=== PATIENT | female | born 1950 | race Caucasian/White ===

== ENCOUNTER 2017-12-01 07:49 | Day surgery (SDC) | payer MEDICARE ==
[2017-11-29 12:08] VITALS: BMI 24.3
[~2017-12-01 07:49] MED LIST: LACTATED RINGERS 1,000 ML IV SCH; LIDOCAINE 1% 20 ML VIAL (10MG/ML) FOR IV START INTRADERMA PRN
[2017-12-01] MEDS ORDERED: PROPOFOL 10 MG/ML 20 ML VIAL IV ONE (08:39)
--- NOTE | 2017-12-01 09:07 | P.PCN ---
Date of Procedure: 12/01/17 Procedure(s) Performed: BRIEF HISTORY: Patient is a 67-year-old pleasant female, scheduled for an elective colonoscopy as a part of evaluation of prior history of colon polyps. Last coloscopy was 3 years ago. PROCEDURE PERFORMED: Colonoscopy with snare polypectomy. PREOPERATIVE DIAGNOSIS: History of colon polyps. IV sedation per Anesthesia. PROCEDURE: After informed consent was obtained, the patient, was brought into the endoscopy unit. IV sedation was administered by Anesthesia under continuous monitoring. Digital rectal examination was normal. Initially the Olympus CF- 160 flexible video colonoscope was then inserted in the rectum, gradually advanced into the cecum without any difficulty. Careful examination was performed as the scope was gradually being withdrawn. Ileocecal valve and the appendiceal orifice were visualized and appeared normal. Prep was excellent. Mucosa of the cecum, ascending colon, transverse colon, descending colon, sigmoid colon, and rectum appeared normal. In the proximal rectum there were 2 polyps measuring 5 mm in size both of which were removed by snare polypectomy. Retroflexion was performed in the rectum and no lesions were seen. The patient tolerated the procedure well. IMPRESSION: 5 mm proximal rectal polyps x 2, status post snare polypectomy Rest of the colon appeared normal RECOMMENDATIONS: Findings of this examination were discussed with the patient as well as her family. She was advised to follow with the biopsy results and have a repeat colonoscopy in 3 years.
[2017-12-01 09:37] VITALS: BP 127/78; PULSE 58; RESP 18
== END 2017-12-01 09:55 | disposition home or self-care (01) ==
LOC: ORWHC2ENDO 07:49
PROVIDERS: ATTEND Internal Medicine Gastroenterology
DX: Z12.11 Encounter for screening for malignant neoplasm of colon (principal); D12.8 Benign neoplasm of rectum; Z86.010 Personal history of colon polyps; Z79.890 Hormone replacement therapy; Z79.899 Other long term (current) drug therapy; I10 Essential (primary) hypertension; E78.5 Hyperlipidemia, unspecified; E07.9 Disorder of thyroid, unspecified; F39 Unspecified mood [affective] disorder
CPT/HCPCS: 88305; 45385; J2704

== ENCOUNTER → 2020-03-26 | Outpatient (CLI) | payer MEDICARE | END | disposition home or self-care (01) | LOC: LABWHC1 12:44 | PROVIDERS: ATTEND Family Medicine | DX: Z20.828 Contact with and (suspected) exposure to other viral communicable diseases (principal) | CPT/HCPCS: U0003; C9803 ==

== ENCOUNTER → 2020-04-02 | Outpatient (CLI) | payer MEDICARE | END | disposition home or self-care (01) | LOC: LABWHC1 12:45 | PROVIDERS: ATTEND Family Medicine | DX: Z20.828 Contact with and (suspected) exposure to other viral communicable diseases (principal) | CPT/HCPCS: U0003; C9803 ==

== ENCOUNTER 2023-03-22 06:26 | Day surgery (SDC) | payer MEDICARE ==
[2023-03-17 13:05] VITALS: BMI 26.6
[~2023-03-22 06:26] MED LIST changes: +LIDOCAINE 1% (10MG/ML) FOR IV START INTRADERMA PRN; -LIDOCAINE 1% 20 ML VIAL (10MG/ML) FOR IV START INTRADERMA PRN
[2023-03-22 07:06] VITALS: RESP 16; TEMP 97.4
[2023-03-22] MEDS ORDERED: PROPOFOL 10 MG/ML 20 ML VIAL IV ONE (07:41)
[2023-03-22] MEDS ORDERED: LIDOCAINE 2% INJ 20 MG/ML (2 ML VIAL) ONE (07:41)
--- NOTE | 2023-03-22 08:01 | P.PCN ---
Date of Procedure: 03/22/23 Procedure(s) Performed: BRIEF HISTORY: Patient is a 72-year-old pleasant white female scheduled for an elective colonoscopy as a part of evaluation of prior history of colon polyps. Last colonoscopy was 5 years ago. Procedure performed: Colonoscopy with snare polypectomy PREOPERATIVE DIAGNOSIS: History of colon polyps. IV sedation per Anesthesia. PROCEDURE: After informed consent was obtained, the patient, was brought into the endoscopy unit. IV sedation was administered by Anesthesia under continuous monitoring. Digital rectal examination was normal. Initially the Olympus CF-160 flexible video colonoscope was then inserted in the rectum, gradually advanced into the cecum without any difficulty. Careful examination was performed as the scope was gradually being withdrawn. Ileocecal valve and the appendiceal orifice were visualized and appeared normal. Prep was excellent. Mucosa of the cecum appeared normal. In the ascending colon there was a 1 cm polyp removed by snare polypectomy. Rest of the , ascending colon, transverse colon, descending colon, sigmoid colon, and rectum appeared normal. Retroflexion was performed in the rectum and no lesions were seen. scattered sigmoid diverticulosis. The patient tolerated the procedure well. IMPRESSION: 1 cm ascending colon polyp status post polypectomy scattered sigmoid diverticulosis RECOMMENDATIONS: Findings of this examination were discussed with the patient as well as her family. She was advised to follow with the biopsy results and if the disease an adenoma she can have a repeat screening colonoscopy in 10 years.
[2023-03-22 08:22] VITALS: BP 164/80; PULSE 62
== END 2023-03-22 08:49 | disposition home or self-care (01) ==
LOC: ORWHC2ENDO 06:26
PROVIDERS: ATTEND Internal Medicine Gastroenterology
DX: Z12.11 Encounter for screening for malignant neoplasm of colon (principal); D12.2 Benign neoplasm of ascending colon; K57.30 Diverticulosis of large intestine without perforation or abscess without bleeding; E78.5 Hyperlipidemia, unspecified; E03.9 Hypothyroidism, unspecified; F32.A Depression, unspecified; Z79.899 Other long term (current) drug therapy; Z79.890 Hormone replacement therapy
CPT/HCPCS: 88305; 45385; J2704; J2001

== ENCOUNTER → 2024-12-30 | Outpatient (CLI) | payer MEDICARE ==
--- NOTE | 2024-12-30 16:56 | NM ---
EXAMINATION TYPE: NM parathyroid w/ SPECT DATE OF EXAM: 12/30/2024 COMPARISON: NONE CLINICAL INDICATION: Female, 74 years old with history of E21.3 Hyperparathyroidism; TECHNIQUE: Following administration of 24.3 mCi Tc99m Sestamibi. Anterior projection images of the neck and ches t were obtained 10 minutes and 3 hours post injection. SPECT images of the neck and chest were obtai ron and reconstructed in three axes. FINDINGS: Normal uptake: There is physiological tracer uptake in the thyroid gland and salivary glands. However , the left thyroid lobe appears small with only the lower pole evident. Thyroid tracer washout: Delayed images demonstrate near-complete tracer washout from the right thyroi d lobe. Parathyroid uptake: However, the small left thyroid lobe shows persistent uptake. IMPRESSION: 1. Scintigraphic findings suggest a small left thyroid lobe. Consider confirming thyroid morphology w ith ultrasound. 2. In addition, persistent uptake on the left suggestive of a parathyroid adenoma. [facility], Workstation: [id number], 12/30/2024 4:53 PM
== END | disposition home or self-care (01) ==
LOC: RADNMMAIN 10:35
PROVIDERS: ATTEND Family Medicine
DX: E21.3 Hyperparathyroidism, unspecified (principal)
CPT/HCPCS: 78071; A9500